=== PATIENT | male | born 1950 | race Caucasian/White ===

== ENCOUNTER 2016-11-30 06:41 | Day surgery (SDC) | payer OTHER ==
[2016-11-29 08:39] VITALS: BMI 27.6
[2016-11-30] MEDS ORDERED: PROPOFOL 20 ML ONE ×2 (07:51→08:43)
[2016-11-30] MEDS ORDERED: MIDAZOLAM HCL 2 MG/2 ML SINGLE DOSE VIAL ONE ×2 (07:51)
[2016-11-30] MEDS ORDERED: LIDOCAINE HCL/PF 2% SDV 5ML VIAL ONE (07:51)
[2016-11-30] MEDS ORDERED: ceFAZolin SODIUM 1 GM VIAL ONE (08:43)
[2016-11-30] MEDS ORDERED: ceFAZolin SODIUM 1 GM VIAL IVPB ONE (08:44)
[2016-11-30] MEDS ORDERED: KETOROLAC TROMETHAMINE 30 MG/1 ML VIAL ONE (08:55)
[2016-11-30] MEDS ORDERED: ONDANSETRON 4 MG/2 ML VIAL IVPUSH PRN (09:13)
[2016-11-30] MEDS ORDERED: oxyCODONE HCL 5 MG TABLET PO PRN (09:13)
[2016-11-30] MEDS ORDERED: ACETAMINOPHEN 500 MG TABLET (FP) PO PRN (09:13)
[2016-11-30] MEDS ORDERED: LACTATED RINGERS SOLUTION 1,000 ML IV SCH (09:15)
--- NOTE | 2016-11-30 09:51 | OP ---
Operative Note - Note: Operative Date: 11/30/16 Pre-Operative Diagnosis: left renal calculi Operation: Left Lithotripsy Findings: multiple left renal calculi Post-Operative Diagnosis: Same as Pre-op Surgeon: Toney Castro MD. Anesthesia: MAC Operative Report Dictated: Yes
[2016-11-30 09:52] VITALS: TEMP 98.2
[2016-11-30 13:08] VITALS: BP 129/72; PULSE 55
--- NOTE | 2016-11-30 14:18 | OP ---
DATE OF OPERATION: 11/30/2016 PREOPERATIVE DIAGNOSIS: Left renal calculus. POSTOPERATIVE DIAGNOSIS: Left renal calculus. PROCEDURE: Left lithotripsy. HISTORY: A 66-year-old gentleman with a long history of renal calculi. On preoperative evaluation, the patient was found to have several bilateral calculi. Left-sided appeared to be larger, so it was decided to treat the left side first. The stones were approximately 5 and 4 mm, and there were approximately 3-4 stones on the left side. After discussing treatment options including observation, the patient elected to undergo the above-stated operation. The risks and benefits of treatment alternatives were discussed in detail. DESCRIPTION OF PROCEDURE: The patient was brought in the operating room and placed in the supine position. Once the stone was visualized using 3D fluoroscopy and ultrasonography, the stone was fragmented into multiple small fragments. This was determined radiographically. At this time, there were no complications. The patient was brought to the recovery room in stable and satisfactory condition. Deborah [id number]
== END 2016-11-30 12:30 | disposition home or self-care (01) ==
LOC: JASU-SURG 06:41
PROVIDERS: ATTEND Urology
PROC: 0TF4XZZ Fragmentation in Left Kidney Pelvis, External Approach (ICD-10-PCS; principal; 2016-11-30 08:00)
DX: N20.0 Calculus of kidney (principal)
CPT/HCPCS: 94760